=== PATIENT | male | born 1950 | race Caucasian/White ===

== ENCOUNTER → 2024-01-21 07:24 | Outpatient (REF) | payer MEDICARE, SELFPAY | LOC: RAD 07:24 | PROVIDERS: ATTENDING PHYSICIAN Nurse Practitioner Adult Health | DX: J84.112 Idiopathic pulmonary fibrosis (principal) | CPT/HCPCS: 71250; 87205 ==

== ENCOUNTER → 2025-01-27 09:50 | Outpatient (REF) | payer MEDICARE, SELFPAY ==
[2025-01-27 11:32] LABS: ALT (SGPT) 22 U/L (0-50); AST (SGOT) 24 U/L (17-59); HDL Cholesterol 45 mg/dl; LDL Cholesterol, Calculated 66 mg/dl; Total Cholesterol 127 mg/dl (50-199); Triglyceride 83 mg/dl (10-149); Very Low Density Lipoprotein 16 mg/dl (0-30)
== END ==
LOC: REG 09:50
PROVIDERS: ATTENDING PHYSICIAN Internal Medicine; FAMILY PHYSICIAN Family Medicine
DX: I10 Essential (primary) hypertension (principal); E78.5 Hyperlipidemia, unspecified
CPT/HCPCS: 36415; 80061; 84450; 84460

== ENCOUNTER → 2025-01-28 10:50 | Outpatient (REF) | payer MEDICARE, SELFPAY ==
--- NOTE | 2025-01-28 11:45 | CARDSERVLU ---
Echocardiogram with [facility] completed after protocol screening completed. Allergies verified.
Patent IV site: __Rt FA___
IV site flushed with 0.9% NaCl pre and post administration.
Diluted bolus method utilized to enhance visualization of ventricular barrientos.
Total volume given: ___2.5 mL
Patient tolerated all procedures well without complications.
== END ==
LOC: RCS 10:50
PROVIDERS: ATTENDING PHYSICIAN Internal Medicine; FAMILY PHYSICIAN Family Medicine
DX: I48.21 Permanent atrial fibrillation (principal); I10 Essential (primary) hypertension; I45.10 Unspecified right bundle-branch block
CPT/HCPCS: 93306

== ENCOUNTER → 2025-03-21 10:33 | Outpatient (REF) | payer MEDICARE, SELFPAY | LOC: HWRAD 10:33 | PROVIDERS: ATTENDING PHYSICIAN Internal Medicine Critical Care Medicine; FAMILY PHYSICIAN Family Medicine | DX: J84.112 Idiopathic pulmonary fibrosis (principal); J47.9 Bronchiectasis, uncomplicated | CPT/HCPCS: 71250 ==

== ENCOUNTER → 2025-04-14 09:05 | Outpatient (REF) | payer MEDICARE, SELFPAY ==
[2025-04-14 11:33] LABS: Erythrocyte Sed Rate 5 mm/hour (0-20)
== END ==
LOC: REG 09:05
PROVIDERS: ATTENDING PHYSICIAN Internal Medicine Critical Care Medicine; FAMILY PHYSICIAN Family Medicine
DX: J84.112 Idiopathic pulmonary fibrosis (principal)
CPT/HCPCS: 36415; 85652; 86140

== ENCOUNTER 2025-05-26 23:26 | Emergency (ER) | payer MEDICARE, SELFPAY ==
[2025-05-26 23:29] VITALS: BP 126/79
--- NOTE | 2025-05-27 00:02 | ED.GENMED ---
History of Present Illness
General
Chief Complaint: Breathing Problem
Time Seen by Provider: 05/27/25 00:02
History of Present Illness
History of Present Illness:
PAST MEDICAL HISTORY AND REVIEW OF OLD RECORDS
- I reviewed records, the patient has a history of idiopathic pulmonary fibrosis. He was also seen here for breathing issues diagnosed with bronchitis and placed on antibiotics in September 2022. 2 months ago, the patient had a CAT scan of his
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
Note:
CHIEF COMPLAINT(S)
Worsening shortness of breath and anxiety in the setting of idiopathic pulmonary fibrosis.
HISTORY OF PRESENT ILLNESS
The patient is a 74-year-old male with a known history of idiopathic pulmonary fibrosis, initially diagnosed during a previous hospitalization. The patient attributes the onset of current symptoms to a worsening of breathlessness over the past few
weeks. He is on medication, specifically Nintedanib (OFAB), although not at the full dose due to intolerance. He reports no leg swelling and denies any history of heart failure. The patient suffers from atrial fibrillation and is on blood thinners.
Recent evaluations have shown stable oxygen saturation at 97% despite reported crackling sounds (typical for pulmonary fibrosis) detected on examination. He describes episodes of chest discomfort but denies persistent chest pain or a history of
coronary artery disease. Diagnostic imaging (x-ray) and blood tests were planned to evaluate his condition further. The patient experiences anxiety related to his breathing issues, stating, 'I dont feel comfortable breathing the right way,' which
exacerbates his symptoms. He recalls receiving treatment for anxiety during past hospital visits and expresses a current need for anxiolytics.
PAST MEDICAL AND SURGICAL HISTORY
Idiopathic pulmonary fibrosis
Atrial fibrillation
CHRONIC MEDICAL CONDITIONS SIGNIFICANTLY AFFECTING CARE
Idiopathic pulmonary fibrosis
Atrial fibrillation
MEDICATIONS
Nintedanib (OFAB) for pulmonary fibrosis, with the patient unable to tolerate a full dose
Blood thinners for atrial fibrillation
REVIEW OF SYSTEMS
- Cardiovascular: Atrial fibrillation, no edema, stable oxygen levels.
- Respiratory: Worsening shortness of breath over weeks, crackling sounds auscultated, idiopathic pulmonary fibrosis.
- Psychological: Anxiety exacerbated by breathing difficulties.
- Musculoskeletal: No leg swelling.
PHYSICAL EXAM
General: Alert, no acute distress.
Skin: Warm, dry.
Head: Normocephalic, atraumatic.
Neck: Supple, trachea midline.
Eye Ears, nose, mouth and throat: Oral mucosa moist.
Cardiovascular: Normal peripheral perfusion, No edema. Irregular rhythm, 2 out of 6 systolic murmur, normal rate
Respiratory: Crackling sounds present, consistent with a history of pulmonary fibrosis. Respirations are non-labored.
Gastrointestinal: Abdomen nondistended.
Back: Normal range of motion, Normal alignment.
Musculoskeletal: Normal ROM, normal strength.
Neurological: Alert and oriented to person, place, time, and situation, No focal neurological deficit observed.
Psychiatric: Anxious, appropriate mood & affect. There may be some very mild cognitive deficits.
PROBLEM LIST
Acute:
- Anxiety secondary to pulmonary fibrosis-related dyspnea
- Worsening pulmonary symptoms in idiopathic pulmonary fibrosis
Chronic:
- Idiopathic pulmonary fibrosis
- Atrial fibrillation
PLAN
1. Diagnostic imaging with chest X-ray to assess current pulmonary status.
2. Blood work to evaluate cardiac markers and other potential abnormalities.
3. Administer a low dose of Xanax for anxiety mitigation.
4. Continue Nintedanib (OFAB) at the current tolerated dose with consideration for further adjustments based on tolerance and pulmonary function testing.
DIFFERENTIAL DIAGNOSIS
The Differential Diagnosis includes, in no particular order and is not limited to:
- Exacerbation of idiopathic pulmonary fibrosis
- Congestive heart failure
- Pulmonary embolism
- Acute coronary syndrome
- Panic disorder
- Chronic obstructive pulmonary disease exacerbation
- Pneumonia
- Pulmonary hypertension
- Hyperventilation syndrome
- Anxiety disorder
RADIOLOGY
- Changes consistent with pulmonary fibrosis seemed to be more apparent on x-ray from 10/06/2022, no definite consolidation currently
EKG
- A-fib 76, normal axis, nonspecific ST abnormality,
LABS
- Chemistries and troponin unremarkable, BNP 1430 which is near baseline
UPDATE
-SUMMARY OF ENCOUNTER
The patient, a 74-year-old male, with a known history of idiopathic pulmonary fibrosis and atrial fibrillation, presented to the emergency department with worsening shortness of breath and anxiety over the past few weeks. Diagnostic evaluation
included a chest x-ray showing signs consistent with pulmonary fibrosis but no acute abnormalities such as pneumonia. The patients white blood cell count was normal, and cardiac markers showed no signs of myocardial infarction. The level checked for
congestive heart failure was consistent with previous records, indicating no acute decompensation. Oxygen levels were stable at 97%. A dose of alprazolam was administered during the visit to address anxiety. The patients symptoms improved, and he
felt well enough to return home. A prescription for a short supply of alprazolam was provided for as-needed use to manage episodes of acute anxiety.
DISPOSITION
Discharge
ASSESSMENT
Anxiety related to dyspnea secondary to idiopathic pulmonary fibrosis. Stable pulmonary and cardiac function.
EMERGENCY TREATMENTS ADMINISTERED
Alprazolam
PLAN
Discharge with a prescription for alprazolam for as-needed use. Encourage conservative use due to addictive potential. Monitor for exacerbation of symptoms.
INDEPENDENT REVIEW OF LABS AND INTERPRETATION OF TESTS
- My independent review of the white blood cell count is normal.
- My independent review of cardiac blood work is normal, with no signs of myocardial infarction.
- My independent review of the level for congestive heart failure is stable, consistent with past results.
INDEPENDENT REVIEW OF RADIOLOGY AND INTERPRETATION OF TESTS
- My independent interpretation of the chest x-ray shows signs consistent with pulmonary fibrosis but no acute findings such as pneumonia.
MEDICATION RECONCILIATION
Prescribed alprazolam for anxiety, with a recommendation for cautious use.
MEDICAL DECISION MAKING
- Complexity of Data Reviewed:
- Chronic conditions affecting care: Idiopathic pulmonary fibrosis, atrial fibrillation.
- Differential Diagnosis List:
- Exacerbation of idiopathic pulmonary fibrosis
- Congestive heart failure
- Pulmonary embolism
- Acute coronary syndrome
- Panic disorder
- Chronic obstructive pulmonary disease exacerbation
- Pneumonia
- Pulmonary hypertension
- Hyperventilation syndrome
- Anxiety disorder.
- Data:
Category 1:
- Tests independently interpreted: white blood cell count normal, cardiac blood work normal, levels for congestive heart failure stable.
- Radiology independently interpreted: Chest x-ray consistent with pulmonary fibrosis.
- Risk:
- Prescription medication was prescribed: Alprazolam for anxiety.
- Consideration of Admission/Observation: Escalation of care including admission/observation was considered given the complexity and risk of the patients presenting complaint, exam findings, and underlying comorbidities. However, ultimately I feel
the patient is safe for outpatient management with close follow-up. Reasoning: Work-up reassuring, does not reveal any acute life/organ threatening processes, patients symptoms well controlled upon reevaluation, reexamination is reassuring, vitals
are stable, patient agreeable with discharge, reliable for follow-up.
DIAGNOSIS
- Dyspnea due to idiopathic pulmonary fibrosis (J84.112)
- Anxiety disorder (F41.9)
- Atrial fibrillation (I48.91)
Past History
Past History
ED Past Medical History: Arrthythmia (Atrial fibrillation), Fibromyalgia, GERD, HTN, Hypercholesterolemia, NIDDM and Other (Idiopathic pulmonary fibrosis, neuropathy, arthritis, history of alcohol abuse)
ED Past Surgical History: None
Social History
Tobacco: Non-smoker
Alcohol: Former
Drug: None
Personal:
Living: with family
Employment: Employed
Family History
Family History: Other (Noncontributory)
Phy Exam
Physical Exam
Physical Exam:
See HPI
Scores
Heart Failure Risk
Heart Failure Risk Score: Not Applicable
Course
Orders/Labs/Results
Orders:
Orders
05/26/25 23:33
ECG [Electrocardiogram (*1)] Urgent
Reason for Study: Chest Pain
05/26/25 23:34
EKG- Treatment ONCE
05/27/25 00:13
Alprazolam [Xanax] 0.5 mg PO NOW STA
CR Chest - 2 Views Urgent
Comment:
Reason For Exam: sob h/o idio pulm fibrosis
05/27/25 00:18
Complete Blood Count/With Diff Urgent
Comprehensive Metabolic Panel Urgent
NT-proBNP Urgent
Troponin I Urgent
Abnormal Lab Results
05/27/25
00:18
RBC 4.35 L 10^6/uL
(4.70-6.10)
MCV 100.7 H fL
(80.0-94.0)
MCH 32.6 H pg
(27.0-31.0)
MCHC 32.4 L g/dL
(33.0-37.0)
Chloride 109 H mmol/L
(98-107)
BUN 22 H mg/dl
(9-20)
Glucose 106 H mg/dl
(70-99)
05/27/25 00:18
05/27/25 00:18
Vital Signs
Initial and Last Documented VS:
Initial Vital Signs
Temp Pulse Resp BP Pulse Ox
37.2 C 80 16 126/79 97
05/26/25 23:29 05/26/25 23:29 05/26/25 23:29 05/26/25 23:29 05/26/25 23:29
Last Documented Vital Signs
Temp Pulse Resp BP Pulse Ox
37.2 C 75 18 114/77 95
05/26/25 23:29 05/27/25 01:14 05/27/25 01:14 05/27/25 01:11 05/27/25 01:12
*Pulse Oximetry
SaO2: 97
Oxygen Mode of Delivery: Room air
Patient hypoxic: no
*Critical Care Note
Total Time (30-74mins, 75-104mins- exclusive of procedures): Not Applicable
ED Attending Note
-
Portions of this chart may have been created with voice recognition software.� Occasional wrong word or��sound alike� substitutions may have occurred due to the inherent limitations of voice recognition software.
Discharge Plan
Departure
Patient Disposition: Home (Routine Discharge)
Date of Disposition: 05/27/25
Time of Disposition: 01:09
Patient with high blood pressure during this ER visit?: Yes
Discharge Problem:
Chronic idiopathic pulmonary fibrosis
Instructions: Shortness of Breath (Dyspnea) (DC), BLOOD PRESSURE
Prescriptions:
New
alprazolam 0.5 mg tablet
0.5 mg PO DAILY PRN (Reason: anxiety) Qty: 8 0RF
No Action
omeprazole 20 MG capsule,delayed release(DR/EC)
20 mg PO BID
lovastatin 40 MG tablet
40 mg PO HS
apixaban [Eliquis] 5 MG tablet
5 mg PO BID
diltiazem HCl 240 MG capsule,extended release 24hr
240 mg PO DAILY
metoprolol tartrate 25 MG tablet
25 mg PO BID
glimepiride 2 MG tablet
2 mg PO BID
acetaminophen 325 MG tablet
650 mg PO Q4HPRN PRN (Reason: mild pain)
ascorbic acid (vitamin C) [Vitamin C] 500 MG tablet
1,000 mg PO DAILY
doxycycline hyclate 100 mg capsule
100 mg PO BID Qty: 20 0RF
albuterol sulfate 1.25 mg/3 mL solution for nebulization
1.25 mg inhalation Q4H PRN (Reason: shortness of breath or wheezing) Qty: 90 0RF
prednisone 20 mg tablet
20 mg PO DAILY Qty: 4 0RF
potassium chloride 20 mEq tablet extended release
20 meq PO ONCE Qty: 10 0RF
prednisone 10 mg Tablet
See Rx Instructions .ROUTE .COMPLEX Qty: 30 0RF
Rx Instructions:
Take By Mouth:
40 mg daily x3 days, 30 mg daily x3 days,
20 mg daily x3 days, 10 mg daily x3 days.
amoxicillin-pot clavulanate 875-125 mg tablet
1 tab PO BID Qty: 20 0RF
Referrals:
Sunny Grullon MD [Family Provider, Pulmonary Medicine]
Activity Restrictions/Additional Instructions:
Follow-up with your material processor. Basic blood work is unremarkable. Try to limit the use of Xanax (alprazolam) as it has high addiction potential.
Interventions
Interventions:
*Risk Screen - Suicide Last Done: 05/26/25 23:29
*General Assessment Last Done: 05/27/25 00:22
*Neglect/Abuse Screening Last Done: 05/26/25 23:29
*ED- Fall Risk Assessment Last Done: 05/26/25 23:29
*ED COVID-19 Vaccine History Last Done: 05/26/25 23:29
*Nursing Disposition Last Done: 05/27/25 01:15
ED- Cardiac Assessment Last Done: 05/27/25 00:22
ED- Pulmonary Assessment Last Done: 05/27/25 00:22
Discharge Date and Time
Discharge Date/Time: 05/27/25 01:24
Print Language: SERBIAN
[2025-05-27 00:11] VITALS: BP 130/86
[2025-05-27 00:16] VITALS: BMI 25.7
[2025-05-27] MEDS: XANAX 0.5 MG PO (00:29)
[2025-05-27 00:39] LABS: Hematocrit 43.8 % (39.0-52.0); Hemoglobin 14.2 g/dL (13.0-18.0); Mean Corp Hgb Conc. 32.4 g/dL (33.0-37.0); Mean Corpuscular Volume 100.7 fL (80.0-94.0); Nucleated Red Blood Cells % 0 % (-); Platelet Count 139 10^3/uL (130-400); Red Cell Dist. Width 14.5 % (11.5-14.5)
[2025-05-27 00:45] LABS: ALT (SGPT) 25 U/L (0-50); AST (SGOT) 25 U/L (17-59); Albumin 4.1 g/dl (3.5-5.0); Alkaline Phosphatase 65 U/L (38-126); Blood Urea Nitrogen 22 mg/dl (9-20); Calcium 9.1 mg/dl (8.4-10.2); Carbon Dioxide 26 mmol/L (22-30); Chloride 109 mmol/L (98-107); Estimated Creatinine Clearance 75 ml/min; Glucose 106 mg/dl (70-99); Potassium 4.4 mmol/L (3.5-5.1); Sodium 140 mmol/L (135-145); Total Protein 6.6 g/dl (6.3-8.2); eGFR > 60.00
[2025-05-27 00:56] LABS: Troponin I < 0.012 ng/ml
[2025-05-27 01:11] VITALS: BP 114/77
== END 2025-05-27 01:24 | disposition home or self-care (01) ==
LOC: EMR 23:26
PROVIDERS: EMERGENCY PHYSICIAN Emergency Medicine; FAMILY PHYSICIAN Internal Medicine Critical Care Medicine; REFERRING PHYSICIAN Family Medicine
DX: J84.112 Idiopathic pulmonary fibrosis (principal); F41.9 Anxiety disorder, unspecified; I48.91 Unspecified atrial fibrillation; E11.9 Type 2 diabetes mellitus without complications; E78.00 Pure hypercholesterolemia, unspecified; I11.0 Hypertensive heart disease with heart failure; I50.9 Heart failure, unspecified; M79.7 Fibromyalgia; Z79.01 Long term (current) use of anticoagulants
CPT/HCPCS: 99283; 71046; 80053; 83880; 84484; 85025; 93005